=== PATIENT | female | born 1940 | race Caucasian/White ===

== ENCOUNTER 2025-02-04 13:42 | Inpatient (IN) | payer MEDICARE, OTHER, SELFPAY ==
[2025-02-04] VITALS (45 sets, daily range): BP systolic 100–160; BP diastolic 56–98; PULSE 76–106; RESP 12–88; TEMP 36.4–36.8; O2SAT 88–97; BMI 32.5
--- NOTE | 2025-02-04 13:58 | EDNOTE_ITS ---
Altered Mental Status RME/HPI General Chief Complaint: Altered Mental Status Stated Complaint: ALTERED / CONFUSED Time Seen by Provider: 02/04/25 14:06 Arrival date/time: 02/04/25 13:42 Limitations: no limitations RME / HPI RME / HPI narrative: 84 year old female with history of hypertension and hyperlipidemia presented to the ED BIBA for evaluation of acute altered mental status and confusion beginning 13:00 hours today. Per medics, on scene reported the patient was driving, from [place], when she suddenly became confused and called 911. Per medics, reported no history of similar confusion, CVA, or TIA. While in the ED no further history is obtainable from the patient due to mental status. Blood sugar in ED is 133. Related Data Previous Rx's ?Medication ?Instructions ?Recorded aspirin 81 mg capsule 81 mg PO QDAY 21 days #21 ca ps 02/06/25 atorvastatin 80 mg tablet 80 mg PO QDAY #30 tabs 02/06 clopidogrel 75 mg tablet 75 mg PO QDAY #21 tabs 02/06 Allergies Allergy/AdvReac Type Severity Reaction Status Date / Time No Known Allergies Allergy Verified 02/04/25 14:17 Review of Systems Review of Systems ROS Unobtainable: unobtainable due to mental status Past Medical History Past Medical History CARDIAC: Positive Cardiac Disorders, Hypercholesterolemia and Hypertension ED Exam General Limitations: Present no limitations General appearance: Present other (Patient is AOx0, on initial examination the patient is not able to follow simple commands, hard of hearing. However after 5 minutes the patient was able to follow simple commands. ) Head Head exam: Present atraumatic Eye Eye exam: Present normal appearance, PERRL and EOMI ENT ENT exam: Present normal exam, normal oropharynx and mucous membranes moist Neck Neck exam: Present normal inspection, full ROM and trachea midline Chest Chest inspection: Present normal inspection and symmetric chest wall rise Respiratory Respiratory exam: Present normal lung sounds bilaterally Cardiovascular Cardiovascular exam: Present regular rate, normal rhythm and normal heart sounds Abdominal Exam Abdominal exam: Present soft, normal bowel sounds and other (obese, nontender ) Extremities Exam Extremities exam: Present normal inspection and full ROM Back Exam Back exam: Present normal inspection and full ROM Neurological Exam Neurological exam: Present other (Patient is AOx0, on initial examination the patient is not able to follow simple commands, hard of hearing. However after 5 minutes the patient was able to follow simple commands. Patient has word findings difficulties, expressive and receptive aphasia, not able to test gait. ) Skin Skin exam: Present warm, dry, intact and normal color Course Course Course Narrative: 1351: I was called to the room by RN for possible stroke assessment. 1353: After examination and history provided by medics, stroke alert was activated. Patients is quite agitated, attempted getting out of bed, and upper extremities were placed in soft restraints. 1420: I spoke with teleneurologist as noted below. 1424: Patient sent to CT 1438: Patient has returned from CT, discussed head CT with teleneurologist and report there is no ICH, will continue with TNK. 1444: I spoke with government professor Dr. Campo as noted in the MDM. Quality Measures Suspected type of Stroke: Acute Ischemic Last known well (date): 02/04/25 Last known well (time): 13:00 Tenecteplase given: within 60 min of arrival stroke Orders Category Date Time Status Bedside Blood Glucose NOW Care 02/04/25 14:07 Completed COVID-19 Screening Questionnaire NOW Care 02/04/25 14:40 Completed Residential Recycle Driver NOW Care 02/04/25 14:07 Completed Continuous Pulse Oximetry NOW Care 02/04/25 14:07 Completed Decision to Admit X1 Care 02/04/25 14:39 Completed EKG (ED ONLY) *Do not use* NOW Care 02/04/25 14:07 Completed In and Out Catheter NEEDED Care 02/04/25 14:07 Completed Insert IV NOW Care 02/04/25 14:07 Completed NIH Stroke Scale QSHIFT Care 02/05/25 23:00 Completed NIH Stroke Scale now Care 02/04/25 14:07 Completed NPO NOW Care 02/04/25 14:07 Completed Neuro Check Q15MIN Care 02/04/25 14:07 Completed Neuro Check Q30M Care 02/04/25 14:50 Completed Nurse Swallow Screen x1 Care 02/04/25 14:07 Completed Vital Signs Q15M Care 02/04/25 14:50 Completed Consult to Neurology / Tele-Neurology Routine Cons 02/04/25 14:[address] angio stroke protocol Stat Exams 02/04/25 14:[address] stroke protocol Stat Exams 02/04/25 14:07 Completed EKG (ED Only) Stat Exams 02/04/25 14:07 Draft Alcohol, Blood Medical Stat Lab 02/04/25 13:58 Completed Arterial Blood Gas Stat Lab 02/04/25 15:03 Completed B-Type Natriuretic Peptide Stat Lab 02/04/25 13:50 Completed CBC Stat Lab 02/04/25 13:50 Completed Comprehensive Metabolic Panel Stat Lab 02/04/25 13:58 Completed Drug Screen,Urine Stat Lab 02/04/25 13:30 Completed Magnesium Stat Lab 02/04/25 13:58 Completed Partial Thromboplastin Time Stat Lab 02/04/25 13:50 Completed Prothrombin Time with INR Stat Lab 02/04/25 13:50 Completed Troponin I Stat Lab 02/04/25 13:58 Completed Urinalysis Stat Lab 02/04/25 13:30 Completed Urine Culture Stat Lab 02/04/25 13:30 Completed Haloperidol Lactate [Haldol Inj] Med 02/04/25 14:14 Discontinued 2 mg IM X1 ONE LORazepam [Ativan Inj] Med 02/04/25 14:13 Discontinued 1 mg IVP X1 ONE Labetalol IV [Trandate IV] Med 02/04/25 14:39 Discontinued 100 mg .ROUTE .STK-MED ONE Ondansetron Inj [Zofran Inj] Med 02/04/25 14:06 Discontinued 4 mg IV Q4HR PRN Sodium Chloride 0.9% 1000 ml [Ns] 1,000 ml Med 02/04/25 14:15 Discontinued IV Q10H Tenecteplase Inj [TNKase Inj] Med 02/04/25 14:34 Discontinued 21.375 mg IV X1 ONE Tenecteplase Inj [TNKase Inj] Med 02/04/25 14:39 Discontinued 50 mg .ROUTE .STK-MED ONE Oxygen Delivery NOW RT 02/04/25 14:07 Completed Vital Signs Vital signs: Vital Signs Pulse Rate 95 02/04/25 14:07 Altered Mental Status MDM Narrative MDM Narrative:: Merly Carlos am scribing for and in the presence of Dr. Hussein. Patient data External records reviewed:: EMS form Clinical information provided by:: EMS Social determinants that could affect healthcare access:: none Patient has the following chronic illnesses:: HTN, HLD How is presenting disease/condition affected by chronic disease/condition?: exacerbated by Evaluation data The following diagnostics were reviewed and interpreted by me:: lab results, radiology exam(s) and EKG tracing(s) (sinus rhythm with occasional PVC's, rate 88, inferior AL age indeterminate) Lab and/or radiology exams considered but not ordered:: None Interpretation Summary: Ordering Physician: Mj Hussein MD Date of Service: 02/04/25 Procedure(s): CT stroke protocol Accession Number(s): [id number] cc: Mj Hussein MD; Santosh Quinonez MD~ Examination: CT brain head without contrast. 2-D sagittal coronal reconstructions Date and time of exam:The second 2024 1428 hours INDICATIONS: Stroke alert, onset focal neurologic deficit altered mental status today CTDI: vol (mGy):8.2 DLP: (mGycm):955 Technique: Multiple CT axial sections of the brain have been obtained, 5 mm slice thickness. Contrast has not been administered. 2-D sagittal, coronal reconstructions have been obtained Low dose protocols were performed. One or more of the following dose reduction techniques were used; automated exposure control, adjustment of the mA and/or KV according to patient size, use of iterative reconstruction technique. Findings: No significant ventricular enlargement. Intra-axial or extra-axial hemorrhage density is not seen. No mass effect or midline shift Basal cisterns are not remarkable. Fourth ventricle is midline. Cranial vault intact. Impression: Negative for acute hemorrhage, mass effect or midline shift Dictated By: Santosh Quinonez MD Signed By: <Electronically signed by Santosh Quinonez MD in [place]> 02/04/25 1434 Medications / Prescriptions Medications or Prescriptions considered but not ordered:: None Medication administrations:: Medication Administration History Discontinued Medications Acetaminophen (Acetaminophen 325 Mg Tablet) 650 mg PO Q6HR PRN PRN Reason: PAIN OR FEVER > 101 Stop: 03/08/25 12:12 Last Admin: 02/06/25 12:41 Dose: 650 mg Documented By: TESSY Aspirin (Aspirin Ec 81 Mg Tabec) 81 mg PO QDAY ZACK Stop: 03/08/25 08:59 Last Admin: 02/06/25 08:40 Dose: 81 mg Documented By: TESSY Atorvastatin Calcium (Atorvastatin Calcium 20 Mg Tablet) 80 mg PO HS ZACK Stop: 03/06/25 20:59 Last Admin: 02/05/25 20:33 Dose: 80 mg Documented By: Admin: 02/04/25 22:37 Dose: Not Given Documented By: AALIYAH Non-Admin Reason: NPO Clopidogrel Bisulfate (Clopidogrel Bisulfate 75 Mg Tablet) 75 mg PO QDAY ZACK Stop: 03/08/25 08:59 Last Admin: 02/06/25 08:41 Dose: 75 mg Documented By: TESSY Haloperidol Lactate (Haloperidol Lact Inj 5 Mg/Ml Vial) 2 mg IM X1 ONE Stop: 02/04/25 14:15 Last Admin: 02/04/25 14:21 Dose: 2 mg Documented By: ANGELA Haloperidol Lactate (Haloperidol Lact Inj 5 Mg/Ml Vial) 2 mg IM X1 ONE Stop: 02/05/25 20:17 Last Admin: 02/05/25 21:00 Dose: 2 mg Documented By: AALIYAH Sodium Chloride (Ns) 1,000 mls @ 100 mls/hr IV Q10H ZACK Stop: 03/06/25 14:14 Last Infusion: 02/06/25 07:15 Dose: Infused Documented By: Admin: 02/05/25 21:53 Dose: Not Given Documented By: AALIYAH Non-Admin Reason: Discontinued Admin: 02/05/25 13:51 Dose: Not Given Documented By: MICHAEL Non-Admin Reason: Per Admin: 02/05/25 02:01 Dose: 100 mls/hr Documented By: Infusion: 02/05/25 01:39 Dose: Infused Documented By: Admin: 02/04/25 15:39 Dose: 100 mls/hr Documented By: ANGELA Labetalol HCl (Labetalol Inj 5 Mg/Ml Vial 20 Ml) Confirm Administered Dose 100 mg .ROUTE .STK-MED ONE Stop: 02/04/25 14:40 Last Admin: 02/04/25 15:34 Dose: Not Given Documented By: ANGELA Non-Admin Reason: Duplicate Medication on eMAR Labetalol HCl (Labetalol Inj 5 Mg/Ml Vial 20 Ml) 10 mg IVP Q2HR PRN PRN Reason: BP>180/105, hold if HR<60 Stop: 03/08/25 00:00 Labetalol HCl (Labetalol Inj 5 Mg/Ml Vial 20 Ml) 2.5 mg IVP Q2HR PRN PRN Reason: BP>180/105, hold if HR<60 Stop: 03/08/25 00:00 Lorazepam (Lorazepam 2 Mg/Ml Vial) 1 mg IVP X1 ONE Stop: 02/04/25 14:14 Last Admin: 02/04/25 14:22 Dose: 1 mg Documented By: DB Lorazepam (Lorazepam 2 Mg/Ml Vial) 2 mg IVP X1 ONE Stop: 02/04/25 19:32 Last Admin: 02/04/25 19:34 Dose: 2 mg Documented By: AD Midazolam HCl (Midazolam Inj 1 Mg/Ml Vial 2 Ml) 2 mg IV X1 ONE Stop: 02/05/25 11:07 Last Admin: 02/05/25 20:31 Dose: Not Given Documented By: AD Non-Admin Reason: Discontinued Midazolam HCl (Midazolam Inj 1 Mg/Ml Vial 2 Ml) 2 mg IV X1 ONE Stop: 02/05/25 20:19 Last Admin: 02/05/25 20:31 Dose: 2 mg Documented By: AD Ondansetron HCl (Ondansetron Inj 2 Mg/Ml Inj 2 Ml) 4 mg IV Q4HR PRN PRN Reason: NAUSEA OR VOMITING Stop: 03/06/25 14:05 Tenecteplase (Tenecteplase Inj 50 Mg Vial) 21.375 mg IV X1 ONE Stop: 02/04/25 14:35 Last Admin: 02/04/25 14:44 Dose: 21.375 mg Documented By: ANGELA Co-signed By: GAETANO Tenecteplase (Tenecteplase Inj 50 Mg Vial) Confirm Administered Dose 50 mg .ROUTE .STK-MED ONE Stop: 02/04/25 14:40 Last Admin: 02/04/25 15:34 Dose: Not Given Documented By: ANGELA Non-Admin Reason: Duplicate Medication on eMAR See above Consultations Consultation(s) initiated? (list below): Yes Consultation #1 (Physician, Specialty, Details): I spoke with teleneurologist Dr. Uriah Glynn. States at this time and after evaluation patient is a candidate for TNK. States he has spoke with patients son who has provided consent. Patient's head CT pending. Time: 14:20 Consultation #2 (Physician, Specialty, Details): I spoke with government professor Dr. Campo. Discussed patients PMHx, HPI, ED course, exam findings, labs, and radiology results. Patient accepted for admission. Time: 14:44 Diagnosis Differential diagnosis altered mental status: altered mental status, dementia, hypoglycemia, hyponatremia, subarachnoid hemorrhage, sepsis and other (CVA, TIA, ICH ) Most likely diagnosis given after review of the tests above:: Acute CVA, most likely ischemic Admission Indicated Admission indicated?: indicated Admission Request Was there a request for admission?: Yes Admission Attestation Admission request attestation: Discussed case with [] from Hospitalist service regarding admission. Discussed patients ED course, exam findings, labs, and radiology results. The Hospitalist [agrees,declines] to accept the patient for admission. Disposition Plan Disposition Plan: Admit Critical Care Time Critical Care Time Critical Care Time: Yes Total Critical Care Time (min.): 35 Attestation: The high probability of sudden, clinically significant deterioration in the patient's condition required the highest level of my preparedness to intervene urgently. The services I provided to this patient were to treat and/or prevent clinically significant deterioration. Services included the following: chart data review, reviewing nursing notes and/or old charts, documentation time, consultant [employer]. vice president [employer] (ex ) collaboration regarding findings and treatment options, medication orders and management, direct patient care, vital sign assessments and ordering, interpreting and reviewing diagnostic studies and lab tests. Aggregate critical care time includes only time during which I was engaged in work directly related to the patient's care, as described above, whether at bedside or elsewhere in the Emergency Department. It did not include time spent performing other reported procedures or the services of residents, students, nurses or physician assistants. Discharge Plan Plan Patient Disposition: Admit Acute Care w/in Hospital Disposition Comment: ICU, Dr. Campo Problem List Clinical Impression: Acute cerebrovascular accident (CVA)
--- NOTE | 2025-02-04 14:04 | PC.NURSE ---
PT'S [facility]EC[facility] CALLED. STATES WAITING FOR SON TO COME FROM [place] TO PICK HIM UP. PHONE [phone]
--- NOTE | 2025-02-04 14:07 | XR_ITS ---
Examination: CTA carotids with intravenous contrast CTA brain, head with intravenous contrast. 2-D sagittal, coronal reconstructions. 3-D reconstructions. Exam date and time: February 04, 2025 1626 hours INDICATIONS: Stroke alert, onset focal neurologic deficit today altered mental status CTDI: vol (mGy) 24.5 DLP: (mGycm) 379 Technique: Multiple CTA axial brain, head carotid images post intravenous contrast injection 75 cc, [id number]. 2-D sagittal, coronal reconstructions. 3-D reconstructions, 3-D post processing including vascular maximum intensity projection images. Low dose protocols were performed. One or more of the following dose reduction techniques were used; automated exposure control, adjustment of the mA and/or KV according to patient size, use of iterative reconstruction technique. Findings: No significant common carotid carotid bifurcation or internal carotid artery stenoses Dominant left vertebral artery with no critical neck stenoses No cerebral large vessel arterial occlusions thrombus dissection or cerebral aneurysm 50% stenosis left posterior cerebral artery junction P1 P2 segments IMPRESSION: No significant neck arterial stenoses No cerebral large vessel arterial occlusions or thrombus
--- NOTE | 2025-02-04 14:07 | XR_ITS ---
Examination: CT brain head without contrast. 2-D sagittal coronal reconstructions Date and time of exam:The second 2024 1428 hours INDICATIONS: Stroke alert, onset focal neurologic deficit altered mental status today CTDI: vol (mGy):8.2 DLP: (mGycm):955 Technique: Multiple CT axial sections of the brain have been obtained, 5 mm slice thickness. Contrast has not been administered. 2-D sagittal, coronal reconstructions have been obtained Low dose protocols were performed. One or more of the following dose reduction techniques were used; automated exposure control, adjustment of the mA and/or KV according to patient size, use of iterative reconstruction technique. Findings: No significant ventricular enlargement. Intra-axial or extra-axial hemorrhage density is not seen. No mass effect or midline shift Basal cisterns are not remarkable. Fourth ventricle is midline. Cranial vault intact. Impression: Negative for acute hemorrhage, mass effect or midline shift
--- NOTE | 2025-02-04 14:07 | EKG_ITS ---
[facility] Test Date: 2025-02-04 Pat Name: KATELIN HAWK Department: Room: - Gender: Female Master Baker: : 1940 Requested By: Mj Jamison Order Number: [id number] Reading MD: Mj Jamison Measurements Intervals [place] Rate: 88 P: 50 NM: 184 QRS: -9 QRSD: 94 T: 15 QT: 375 QTc: 454 Interpretive Statements SINUS RHYTHM WITH OCCASIONAL VENTRICULAR PREMATURE COMPLEXES LOW QRS VOLTAGE IN PRECORDIAL LEADS [QRS DEFLECTION < 1.0 mV IN CHEST LEADS] INFERIOR MYOCARDIAL INFARCTION , PROBABLY OLD [40+ ms Q WAVE AND/OR ST/T ABNORMALITY IN II/aVF] No previous ECG available for comparison /[id number]/S0/[id number]
--- NOTE | 2025-02-04 14:15 | PC.NURSE ---
teleneurologist Dr Kruse on the phone with son Cody [phone], concent obtained
[2025-02-04] MEDS: HALOPERIDOL LACT INJ 5 MG/ML VIAL 2 MG IM (14:21)
[2025-02-04] MEDS: LORazepam 2 MG/ML VIAL 1 MG IVP (14:22)
[2025-02-04 14:25] LABS: Basophils # (Auto) 0.1 Thou/mm3 (0.0-0.2); Basophils % (Auto) 1 % (0-2.5); Eosinophils # (Auto) 0.3 Thou/mm3 (0.0-0.5); Eosinophils % (Auto) 2 % (0-10); Hematocrit 40.2 % (36.0-46.0); Hemoglobin 13.3 g/dL (12.0-16.0); Immature Granulocytes % (Auto) 0 % (0-0); Immature Granulocytes Auto 0.03 Thou/mm3 (0.00-0.00); Lymphocytes # (Auto) 3.7 Thou/mm3 (1.0-4.8); Lymphocytes % (Auto) 31 % (10-50); Mean Corpuscular HGB Conc 33.1 g/dl (31.0-37.0); Mean Corpuscular Hemoglobin 28.2 pg (25.0-35.0); Mean Corpuscular Volume 85 fL (80-100); Monocytes # (Auto) 0.9 Thou/mm3 (0.0-0.8); Monocytes % (Auto) 7 % (0-12); Neutrophils # (Auto) 7.1 Thou/mm3 (1.8-7.7); Neutrophils % (Auto) 59 % (37-80); Nucleated Red Blood Cell % 0 /100 WBC (0); Platelet Count 325 Thou/mm3 (140-440); RDW Standard Deviation 48.5 fL (36.4-46.3); Red Blood Count 4.72 Miln/mm3 (4.00-5.20); White Blood Count 12.2 Thou/mm3 (3.6-11.0)
[2025-02-04 14:34] LABS: B-Type Natriuretic Peptide 48 pg/mL (0-100)
[2025-02-04] MEDS: TENECTEPLASE INJ 50 MG VIAL 21.375 MG IV (14:44)
[2025-02-04 14:46] LABS: Partial Thromboplastin Time 24.1 Seconds (22.0-36.0); Prothrombin Time 10.9 Seconds (9.0-12.2)
[2025-02-04 15:00] LABS: Alanine Aminotransferase 19 U/L (10-49); Albumin, Serum 4.7 gm/dL (3.4-4.8); Albumin/Globulin Ratio 2.2 (1.2-2.2); Alcohol, Blood Medical < 3.0 mg/dL (0-10.0); Alkaline Phosphatase 126 U/L (46-116); Anion Gap 14 (7-16); Aspartate Amino Transferase 23 U/L (0-34); BUN/Creatinine Ratio 18 Ratio (12-20); Bilirubin,Total 0.5 mg/dL (0.3-1.2); Blood Urea Nitrogen 14 mg/dL (9-23); Calcium 9.3 mg/dL (8.3-10.6); Calcium (Corrected) 9.3 mg/dL (8.5-10.1); Carbon Dioxide 19.2 mMol/L (20.0-31.0); Chloride 111 mMol/L (98-107); Creatinine (Component) 0.8 mg/dL (0.6-1.3); Estimated Creatinine Clearance 55.5 mL/min (>60); Globulin 2.1 gm/dL (2.3-3.5); Glucose 135 mg/dL (74-106); Magnesium 2.1 mg/dL (1.6-2.6); Osmolality,Calculated 289 (275-295); Potassium 3.6 mMol/L (3.4-5.1); Sodium 144 mMol/L (136-145); Total Protein 6.8 gm/dL (5.7-8.2); Troponin I < 0.002 ng/mL (0.0-0.045); eGFR > 60 See Note
--- NOTE | 2025-02-04 15:05 | ESCONSULT_ITS ---
Tele Neuro Consultation Consultation Date 02/04/25 Most Recent Vital Signs Last Vital Signs Pulse 95 02/04/25 14:07 Laboratory-Coagulation Panel PT 10.9 Seconds (9.0-12.2) 02/04/25 13:50 INR 1.0 (0.9-1.3) 02/04/25 13:50 APTT 24.1 Seconds (22.0-36.0) 02/04/25 13:50 Consultation Narrative [facility] Tele[facility]rology Consult [facility] Patient Name:???Malathi Cedeño Date of :???1940 Identification Number:??? Date of Service:???02/04/2025 13:57:20 Diagnosis:?I63.30 - Cerebrovascular accident (CVA) due to thrombosis of cerebral artery (HCCC) Impression: ?84-year-old female with history of hypertension, hyperlipidemia who apparently was noted to have acute change in mental status with suspected ap hasia. Patient was reportedly driving with her when she turned on her [employer] and it was not raining. came concerned and had her sinker puller and noted that she was not talking normally or answering questions. Patient was brought in by EMS. On arrival, patient seems to have significant expressive greater than receptive aphasia. ?On examination, patient is awake, unable to answer orientation questions due to aphasia although did tell me her first name, follows some simple commands but not consistently. She has some bilateral leg drift but did not fully cooperate with motor testing but no obvious asymmetries. Maybe some mild superimposed dysarthria as well. NIHSS = 9. Patient was severely agitated initially and required sedatives before being able to complete CT head with significant delay. CT head revealed no acute findings. We will proceed with stat CTA of head and neck, and involve VAMSHI if there is LVO. ?Suspect acute CVA. Patient's son, Cody was contacted on the phone to obtain additional information and consent for thrombolytic treatment. Patient had no exclusionary factors. IV tenecteplase, was given after consent obtained and CT resulted. Admit for cerebrovascular workup and management postthrombolytic treatment. Our recommendations are outlined below. Recommendations: IV Tenecteplase recommended. I confirmed the following. (Patient name, , MRN, Blood Pressure, dose of Thrombolytic and waste, weight completed by stretcher/scale not stated weight, have ED staff inform ED MD of thrombolytic decision) Thrombolytic bolus given Without Complication. IV Tenecteplase Total Dose ? 21.4 mg Routine post Thrombolytic monitoring including neuro checks and blood pressure control during/after treatment Monitor blood pressure Check blood pressure and neuro assessment every 15 min for 2 h, then every 30 min for 6 h, and finally every hour for 16 h. Manage Blood Pressure per post Thrombolytic protocol. ? Follow designated hospital protocol for admission and post thrombolytic care ? CT brain 24 hours post Thrombolytic ? NPO until swallowing screen performed and passed ? No antiplatelet agents or anticoagulants (including heparin for DVT prophylaxis) in first 24 hours ? No Fajardo catheter, nasogastric tube, arterial catheter or central venous catheter for 24 hr, unless absolutely necessary ? Telemetry ? Bedside swallow evaluation ? HOB less than 30 degrees ? Euglycemia ? Avoid hyperthermia, PRN acetaminophen ? DVT prophylaxis ? Inpatient Neurology Consultation ? Stroke evaluation as per inpatient neurology recommendations Discussed with ED physician Metrics: Last Known Well: 02/04/2025 12:30:00 Dispatch Time: 02/04/2025 13:57:20 Arrival Time: 02/04/2025 13:42:00 Initial Response Time: 02/04/2025 13:59:04Symptoms: Aphasia . Initial patient interaction: 02/04/2025 14:01:04 NIHSS Assessment Completed: 02/04/2025 14:07:05Patient is a candidate for Thrombolytic. Thrombolytic Medical Decision: 02/04/2025 14:36:34 Needle Time: 02/04/2025 14:44:36Weight Noted by Staff: 85.5 kg I personally Reviewed the CT Head and it Showed Extended thrombolytic management related to: ?? Awaiting on history by family on potential contraindications Thrombolytic Contraindications: Last Known Well > 4.5 hours:?Unknown at the time of medical decision making CT Head showing hemorrhage:?Unknown at the time of medical decision making Ischemic stroke within 3 months:?Unknown at the time of medical decision making Severe head trauma within 3 months:?Unknown at the time of medical decision making Intracranial/intraspinal surgery within 3 months:?Unknown at the time of medical decision making History of intracranial hemorrhage:?Unknown at the time of medical decision making Symptoms and signs consistent with an SAH:?Unknown at the time of medical decision making GI malignancy or GI bleed within 21 days:?Unknown at the time of medical decision making Coagulopathy: Platelets <100 000 /mm3, INR >1.7, aPTT>40 s, or PT >15 s:?Unknown at the time of medical decision making Treatment dose of LMWH within the previous 24 hrs:?Unknown at the time of medical decision making Use of NOACs in past 48 hours:?Unknown at the time of medical decision making Glycoprotein IIb/IIIa receptor inhibitors use:?Unknown at the time of medical decision making Symptoms consistent with infective endocarditis:?Unknown at the time of medical decision making Suspected aortic arch dissection:?Unknown at the time of medical decision making Intra-axial intracranial neoplasm:?Unknown at the time of medical decision making Thrombolytic Decision and Management Plan: Management with thrombolytic treatment was explained to the Family as was risks and benefits and alternatives to the treatment. Patient agrees with the decision to proceed with thrombolytic treatment. . All questions were answered and the Family expressed understanding of the treatment plan. History of Present Illness:Patient is a 84 year old Female. Patient was brought by EMS for symptoms of Aphasia . 84-year-old female with history of hypertension, hyperlipidemia who apparently was noted to have acute change in mental status with suspected aphasia. Patient was reportedly driving with her when she turned on her [employer] w[employer]' s and it was not raining. came concerned and had her sinker puller and noted that she was not talking normally or answering questions. Patient was brought in by EMS. On arrival, patient seems to have significant expressive greater than receptive aphasia. ? Past Medical History: ?Hypertension ?Hyperlipidemia Other PMH:? TIA possible Medications: No Anticoagulant use? No Antiplatelet use Reviewed EMR for current medications Other Medications Pertinent To Assessment Include: BP , atovastatin Allergies:? Reviewed,NKDA Social History: Smoking: No Alcohol Use: No Drug Use: No Family History: There is no family history of premature cerebrovascular disease pertinent to this consultation ROS : 14 Points Review of Systems was performed and was negative except mentioned in HPI. Past Surgical History: There Is No Surgical History Contributory To Today?s Visit There Is Surgical History of:? Cholecystectomy ? Examination: BP(154/97),?Pulse(105),?Blood Glucose(133) 1A: Level of Consciousness - Alert; keenly responsive?+ 0 1B: Ask Month and Age - Aphasic?+ 2 1C: Blink Eyes & Squeeze Hands - Performs Both Tasks?+ 0 2: Test Horizontal Extraocular Movements - Normal?+ 0 3: Test Visual Spencer - No Visual Loss?+ 0 4: Test Facial Palsy (Use Grimace if Obtunded) - Normal symmetry?+ 0 5A: Test Left Arm Motor Drift - No Drift for 10 Seconds?+ 0 5B: Test Right Arm Motor Drift - No Drift for 10 Seconds?+ 0 6A: Test Left Leg Motor Drift - Some Effort Against Plains?+ 2 6B: Test Right Leg Motor Drift - Some Effort Against Plains?+ 2 7: Test Limb Ataxia (FNF/Heel-Elias) - No Ataxia?+ 0 8: Test Sensation - Normal; No sensory loss?+ 0 9: Test Language/Aphasia - Severe Aphasia: Fragmentary Expression, Inference Needed, Cannot Identify Materials?+ 2 10: Test Dysarthria - Mild-Moderate Dysarthria: Slurring but can be understood?+ 1 11: Test Extinction/Inattention - No abnormality?+ 0 NIHSS Score:?9 Pre-Morbid Modified Jocelyn Scale:0 Points = No symptoms at all Spoke with :?Dr Hussein This consult was conducted in real time using interactive audio and video technology. Patient was informed of the technology being used for this visit and agreed to proceed. Patient located in hospital and provider located at home/office setting. Patient is being evaluated for possible acute neurologic impairment and high probability of imminent or life-threatening deterioration. I spent total of 69 minutes providing care to this patient, including time for face to face visit via telemedicine, review of medical records, imaging studies and discussion of findings with providers, the patient and/or family. Dr Uriah Glynn [facility] For Inpatient follow-up with [facility] physician please call [facility] at . As we are not an outpatient service for any post hospital discharge needs please contact the hospital for assistance. If you have any questions for the [facility] physicians or need to reconsult for clinical or diagnostic changes please contact us via [facility] at .
[2025-02-04 15:08] LABS: Base Excess -1 (-3-3); HCO3 22 mEq/L (20-26); Inspired O2, VO2 Liters 2 L/min; Inspired Oxygen, FIO2 21 %; O2 Saturation 88 % (91-98); PCO2 31 mmHg (32.0-48.0); pH, Arterial 7.47 (7.35-7.45)
[2025-02-04 15:09] LABS: Allen Test Performed/OK; Puncture Site Left Radial
[2025-02-04 15:15] LABS: PO2 51 mmHg (83-108)
--- NOTE | 2025-02-04 15:28 | PD.RESHP ---
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 Patient's and son were at bedside during the time of assessment and provided most of the history given that patient was aphasic. Patient's stated that in October around [place] time she had a similar episode where she was confused, but this episode did not last long and it was self resolved. He did not mention any hospital stay or visit during this time, but he did mention that supposedly it was a TIA. Patient stated that today's episode started when they were finishing packing up everything to head home back from [place] when she was on the car asking him how to turn on the windshield blades as it was raining, but it was not raining and all. Patient's mentioned that he noticed that she was more confused therefore he drove until he had good cell phone campus receptionist and was able to call 911 to have patient brought into the ER. Prior to this patient's stated that she was in her normal mental state. As per patient's she does not take any medications other than atorvastatin 10 mg as well as some blood pressure medications. It is unknown if patient was on any dual antiplatelet therapy after her similar episode in October. During assessment patient was able to follow commands, but it was noted that she did have some expressive aphasia and was mildly confused and was only oriented to her first name. She denies any chest pain, abdominal pain, nausea, diarrhea, or dysuria. In the ER patient was agitated, confused, combative, and is still aphasic therefore she was given Ativan and haloperidol as well as restraints were placed. Head CT was done while the patient was in the ER and did not reveal any acute hemorrhage, mass effect, or midline shift therefore ER physician spoke with teleneurology specialist and was given tenecteplase. Patient was admitted to the ICU for post tenecteplase administration monitoring. ED course: Initially came in hypertensive, hypoxic, and afebrile. Initial labs were relevant for mild leukocytosis (12.2), mild respiratory alkalosis and hypoxia (pH 7.47, pO2 51, pCO2 31), high anion gap metabolic acidosis (AG 14 and bicarb 19.2), and drug screen positive for marijuana. Initial imaging included head CT which did not show any acute hemorrhage, mass effect, or midline shift. EKG showed sinus rhythm. PMH: As above Social Hx: As per patient's never did any drugs, smokes, or alcohol Surgical Hx as per only had cholecystectomy many years ago Allergies: As per patient's no allergies Review of Systems Review of Systems Narrative Review of Systems: Constitutional: Denies sweats, Denies weight loss/gain, Denies fever, Denies chills. HEENT: Denies hearing loss, Denies ear pain, Denies postnasal drip, Denies double vision, Denies blurry vision. Respiratory: Denies shortness of breath, Denies cough, Denies wheezing. Cardiovascular: Denies chest pain, Denies palpitations, Denies sudden loss of consciousness. GI: Denies blood in stool, Denies constipation, Denies abdominal pain, Denies difficulty swallowing, Denies nausea or vomit. : Denies urinary incontinence, Denies pain while urinating, Denies increased urinary frequency. MSK: Denies joint pain, Denies joint swelling, Denies numbness. Skin: Denies rash, Denies itching, Denies easy bruising. Neuro: Denies headaches, Denies dizziness, Denies seizures, Admits confusion . Past Medical History Past Medical History CARDIAC: Positive Cardiac Disorders, Hypercholesterolemia and Hypertension Exam Vital Signs Temp Pulse Resp BP Pulse Ox O2 Del Method O2 Flow Rate 97.9 F 97 20 151/69 H 92 L Nasal Cannula 2 02/04/25 15:00 02/04/25 15:15 02/04/25 15:15 02/04/25 15:15 02/04/25 15:15 02/04/25 15:15 02/04/25 15:15 Narrative Exam General: Aphasic and confused. Oriented only to first name. Eyes: PERRL, EOMI. Anicteric, vision grossly intact. Ears: No ear pain, no ear discharge, Hearing grossly intact. Nose: No nasal discharge. Mouth/Throat: Dry mucous membranes, no redness, no lesions. Neck: Neck supple, non-tender, no cervical lymphadenopathy. Lungs: Clear CHRIS to auscultation and percussion, No accessory muscle use. Cardio: Normal S1/S2, regular rhythm, no murmurs, no JVD Abdomen: Soft, non-tender, no palpable masses, peristalsis present, no guarding or rebound. Extremities: Symmetrical, no significant deformities, no peripheral edema , non-tender, peripheral pulses presents. Skin: No rashes, no lesions, warm to touch. Neuro: Expressive aphasia appreciated, able to move all extremities, able to follow commands, no loss of sensation, no nasal fold flattening, muscle strength in upper and lower extremities 5 out of 5. Only alert to her first name, but not last name or date or place. Psych: Cooperative, appropriate mood and effect. Results: Labs 02/04/25 13:50 02/04/25 13:58 Labs: Short CBC 02/04/25 Range/Units 13:50 WBC 12.2 H (3.6-11.0) Thou/mm3 Hgb 13.3 (12.0-16.0) g/dL Hct 40.2 (36.0-46.0) % Plt Count 325 (140-440) Thou/mm3 BMP 02/04/25 13:58 Sodium 144 Potassium 3.6 Chloride 111 H Carbon Dioxide 19.2 L BUN 14 Creatinine 0.8 Glucose 135 H Calcium 9.3 Cardiac Enzymes 02/04/25 Range/Units 13:58 Troponin I < 0.002 (0.0-0.045) ng/mL Liver Function 02/04/25 Range/Units 13:58 Total Bilirubin 0.5 (0.3-1.2) mg/dL AST 23 (0-34) U/L ALT 19 (10-49) U/L Alkaline Phosphatase 126 H (46-116) U/L Albumin 4.7 (3.4-4.8) gm/dL ABG Interpretation ABG results: 02/04/25 15:03 ABG pH 7.47 H ABG pCO2 31 L ABG pO2 51 L* ABG HCO3 22 ABG O2 Saturation 88 L ABG Base Excess -1 Quality Measures Quality Measures stroke Suspected type of Stroke: Acute Ischemic Last known well (date): 02/04/25 Last known well (time): 13:00 Tenecteplase given: within 60 min of arrival Rehab services: PT evaluation ordered and Speech Language Pathology eval ordered VTE Prophylaxis: not ordered (received TNK) Antithrombotic by day 2:: contraindicated (describe) (recieved tenecteplase on arrival ) Statin ordered: >75 y/o moderate or high intensity dose Anticoagulation ordered for A-fib or flutter (current or hx): not indicated Advance care planning discussed with:: patient, spouse and child Medications Home Medications and Allergies Allergies Allergy/AdvReac Type Severity Reaction Status Date / Time No Known Allergies Allergy Verified 02/04/25 14:17 Visit Medications Atorvastatin Calcium (Atorvastatin Calcium 20 Mg Tablet) 80 mg PO HS ZACK Stop: 03/06/25 20:59 Sodium Chloride (Ns) 1,000 mls @ 100 mls/hr IV Q10H ZACK Stop: 03/06/25 14:14 Ondansetron HCl (Ondansetron Inj 2 Mg/Ml Inj 2 Ml) 4 mg IV Q4HR PRN PRN Reason: NAUSEA OR VOMITING Stop: 03/06/25 14:05 Discontinued Medications Haloperidol Lactate (Haloperidol Lact Inj 5 Mg/Ml Vial) 2 mg IM X1 ONE Stop: 02/04/25 14:15 Last Admin: 02/04/25 14:21 Dose: 2 mg Lorazepam (Lorazepam 2 Mg/Ml Vial) 1 mg IVP X1 ONE Stop: 02/04/25 14:14 Last Admin: 02/04/25 14:22 Dose: 1 mg Tenecteplase (Tenecteplase Inj 50 Mg Vial) 21.375 mg IV X1 ONE Stop: 02/04/25 14:35 Last Admin: 02/04/25 14:44 Dose: 21.375 mg Assessment & Plan Plan 84-year-old female with past medical history of TIA, hyperlipidemia, hypertension, and valley fever was admitted to the ICU on 02/04/2025 for post tenecteplase administration monitoring and the likelihood of acute CVA. 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 ?No labs until tomorrow at 2pm ? Repeat head CT after 24 hours ? MRI ordered - Echo ordered ?Neurochecks every 1 hour ?Allow permissive hypertension (upto 180/105) ?Head of bed flat until CTA gets back and if she does not have an LVO will keep head of bed elevated at 30 degrees or less - Will start aspirin tomorrow and plavix as well. -NPO until formal speech eval. ?Aspiration precautions -Consult in-hospital neurology, appreciate recommendations -Referred to speech and physical therapy CVS: #Hx of hypertension ?Will allow permissive hypertension for now with blood pressure below 180/105 in the setting of tenecteplase and possible CVA #Hyperlipidemia ? Start atorvastatin if patient passes formal speech evaluation Respiratory: #Acute hypoxic respiratory failure #Respiratory alkalosis ? Patient was saturating in the 93 to 92% and was placed on 2 L of nasal cannula. ? ABG that showed pO2 of 51, pCO2 31, and pH of 7.47 ? Will continue with O2 administration for now and monitor Renal: No active conditions GI: No active conditions Endo: No active conditions Hematology: #Leukocytosis ? WBC 12.2 on admission, likely reactive ? Will continue monitor for now Hospital Maintenance: Diet: NPO DVT ppx: held due to TNK GI ppx: not indicated IV lines: PIV Fajardo: none Code status: Full code Dispo: ICU for monitoring after tenecteplase Case disclosed with Attending Dr. Jahaira Phillips PGY1
[2025-02-04 15:36] LABS: Collection Type, Urine Catheter
[2025-02-04] MEDS: SODIUM CHLORIDE 0.9% 1000 ML 1,000 ML 100 ML IV (15:39)
[2025-02-04 15:46] LABS: Bilirubin,Urine Negative (Negative); Blood,Urine Negative (Negative); Clarity,Urine Clear (Clear/Hazy); Color,Urine Colorless (Lt Yel-Yel); Glucose, Urine Negative (Negative); Ketones,Urine Trace (Negative); Leukocyte Esterase,Urine Negative (Negative); Nitrite,Urine Negative (Negative); PH,Urine 7.5 (5.0-7.0); Protein,Urine Negative (Neg - Trace); RBC,Urine 1 /hpf (0-3); Squamous Epithelial Cell,Urine 1 /hpf (0-5); Urobilinogen,Urine Negative mg/dL (0.0-1.0); WBC,Urine 4 /hpf (0-5)
[2025-02-04 15:57] LABS: Amphetamine/Methamp Scrn,U Negative (Negative); Barbiturate Screen,Urine Negative (Negative); Benzodiazepines Screen,Urine Negative (Negative); Benzoylecgonine Screen, Ur Negative (Negative); Fentanyl Screen,Urine Negative (Negative); Opiate Screen,Urine Negative (Negative); THC Screen,Urine Positive (Negative)
--- NOTE | 2025-02-04 16:20 | PC.NURSE ---
TELENEROLOGIST CALLED AND WASNT TO KNOW WHY CTA NOT DONE. INFORMED THAT NURSE WAS TOLD IT WAS CANCELLED. MD WANTS SCAN DONE AND NURSE INFORMED
--- NOTE | 2025-02-04 16:22 | PC.NURSE ---
PT HERE WITH C/O VAGINAL BLEEDING AND B/P HIGH. HX HTN
[2025-02-04] MEDS: LORazepam 2 MG/ML VIAL IVP (19:34)
--- NOTE | 2025-02-04 20:00 | PC.NURSE ---
MRI called for pt to be transported for MRI. per family, pt is claustrophobic, made aware. 2mg ativan IV ordered. prior to transporting pt, ativan was given. in MRI, pt moving and not following directions to stay still. made aware and pt was brought back to ICU and will attempt again in AM
[2025-02-05] VITALS (55 sets, daily range): BP systolic 110–168; BP diastolic 58–126; PULSE 60–122; RESP 13–93; TEMP 36.3–37.1; O2SAT 88–97; BMI 31.4; BMI 13.0
[2025-02-05] MEDS: SODIUM CHLORIDE 0.9% 1000 ML 1,000 ML 100 ML IV (02:01)
--- NOTE | 2025-02-05 07:07 | PC.LAC ---
Human Resources Technician: Late entry for 02/04/25 @ [id number]: Dr Hussein informed that no CTA was done due to time constraints around the [facility]. CT Angio was held per direction of the on-screen neurologist.
--- NOTE | 2025-02-05 13:45 | PC.SS ---
KILN PULLER conducted bedside contact with the patient conduct initial assessment and to discuss discharge planning.? Patient confirmed demographic information.? Patient resides at home with spouse, Cody Cedeño .? 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 Patient resides in [place], [place].? Patient returning home from [place] when increased confusion prompted patient?s spouse to bring patient to ED.? Patient does not utilize any form of DME to assist with ambulation.? Patient does not utilize home oxygen.? Patient utilizes a CPAP for night time use.? Patient describes the ability to complete ADL?s independently.? Patient identified spouse, Cody Cedeño ; as medical surrogate decision maker.? Patient?s PCP is Lida Driver.? Patient?s pastry decorator is Lida Espinoza.? Patient does not participate with dialysis.? Patient utilizes [facility] ([facility] for medication services.? Plan is for the patient to return home at the time of discharge.? Family will provide transportation on behalf of the patient. No discharge needs identified by the patient.? No further intervention required at this time, social media marketing manager will be available to address any further concerns.? Next of Kin: Cody Cedeño D/C Plan: Home
[2025-02-05 13:46] LABS: Basophils # (Auto) 0.1 Thou/mm3 (0.0-0.2); Basophils % (Auto) 1 % (0-2.5); Eosinophils # (Auto) 0.1 Thou/mm3 (0.0-0.5); Eosinophils % (Auto) 1 % (0-10); Hematocrit 40.1 % (36.0-46.0); Hemoglobin 13.2 g/dL (12.0-16.0); Immature Granulocytes % (Auto) 0 % (0-0); Immature Granulocytes Auto 0.03 Thou/mm3 (0.00-0.00); Lymphocytes # (Auto) 1.7 Thou/mm3 (1.0-4.8); Lymphocytes % (Auto) 21 % (10-50); Mean Corpuscular HGB Conc 32.9 g/dl (31.0-37.0); Mean Corpuscular Hemoglobin 28.1 pg (25.0-35.0); Mean Corpuscular Volume 86 fL (80-100); Monocytes # (Auto) 0.6 Thou/mm3 (0.0-0.8); Monocytes % (Auto) 7 % (0-12); Neutrophils # (Auto) 5.8 Thou/mm3 (1.8-7.7); Neutrophils % (Auto) 70 % (37-80); Nucleated Red Blood Cell % 0 /100 WBC (0); Platelet Count 313 Thou/mm3 (140-440); RDW Standard Deviation 50.1 fL (36.4-46.3); Red Blood Count 4.69 Miln/mm3 (4.00-5.20); White Blood Count 8.3 Thou/mm3 (3.6-11.0)
[2025-02-05 14:02] LABS: Glucose Estimated Average 120 mg/dL (80-131); Hemoglobin A1C 5.8 % Hgb (4.8-6.0)
[2025-02-05 14:04] LABS: Alanine Aminotransferase 16 U/L (10-49); Albumin, Serum 4.3 gm/dL (3.4-4.8); Albumin/Globulin Ratio 1.9 (1.2-2.2); Alkaline Phosphatase 114 U/L (46-116); Anion Gap 11 (7-16); Aspartate Amino Transferase 24 U/L (0-34); BUN/Creatinine Ratio 13 Ratio (12-20); Bilirubin,Total 0.6 mg/dL (0.3-1.2); Blood Urea Nitrogen 9 mg/dL (9-23); Calcium 8.7 mg/dL (8.3-10.6); Calcium (Corrected) 8.7 mg/dL (8.5-10.1); Carbon Dioxide 24.5 mMol/L (20.0-31.0); Cardiac Risk Estimate 2.8 RATIO (3.7-5.6); Chloride 108 mMol/L (98-107); Cholesterol 147 mg/dL (132-200); Creatinine (Component) 0.7 mg/dL (0.6-1.3); Estimated Creatinine Clearance 62.5 mL/min (>60); Globulin 2.3 gm/dL (2.3-3.5); Glucose 126 mg/dL (74-106); HDL Cholesterol 53 mg/dL (40-60); LDL Cholesterol,Calculated 76 mg/dL (0-130); Osmolality,Calculated 285 (275-295); Potassium 3.4 mMol/L (3.4-5.1); Sodium 143 mMol/L (136-145); Thyroid Stimulating Hormone 4.17 uIU/mL (0.55-4.78); Total Protein 6.6 gm/dL (5.7-8.2); Triglycerides 90 mg/dL (30-150); eGFR > 60 See Note
--- NOTE | 2025-02-05 14:50 | ESPR_ITS ---
Documentation for date of: 02/05/25 Subjective Subjective Interval history: 84-year-old female with past medical history of TIA, hyperlipidemia, hypertension, and valley fever was admitted to the ICU on 02/04/2025 after coming to the ED with complaints of altered mental status that started around 1 PM today. Patient's and son were at bedside during the time of assessment and provided most of the history given that patient was aphasic. Patient's stated that in October around [place] time she had a similar episode where she was confused, but this episode did not last long and it was self resolved. He did not mention any hospital stay or visit during this time, but he did mention that supposedly it was a TIA. Patient stated that today's episode started when they were finishing packing up everything to head home back from [place] when she was on the car asking him how to turn on the [employer] blades as it was raining, but it was not raining and all. Patient's mentioned that he noticed that she was more confused therefore he drove until he had good cell phone composition floor layer and was able to call 911 to have patient brought into the ER. Prior to this patient's stated that she was in her normal mental state. As per patient's she does not take any medications other than atorvastatin 10 mg as well as some blood pressure medications. It is unknown if patient was on any dual antiplatelet therapy after her similar episode in October. During assessment patient was able to follow commands, but it was noted that she did have some expressive aphasia and was mildly confused and was only oriented to her first name. She denies any chest pain, abdominal pain, nausea, diarrhea, or dysuria. In the ER patient was agitated, confused, combative, and is still aphasic therefore she was given Ativan and haloperidol as well as restraints were placed. Head CT was done while the patient was in the ER and did not reveal any acute hemorrhage, mass effect, or midline shift therefore ER physician spoke with teleneurology specialist and was given tenecteplase. Patient was admitted to the ICU for post tenecteplase administration monitoring. 02/05: No acute overnight events, no active signs of bleeding, mentation has improved, awake alert and oriented, passed speech eval. No focal deficits. Still somwhat confused as to month and year. Head CT 24 hrs couldn't be done due to machine issues, MRI either, hoping for tomorrow. Safe and stable for downgrade to the floors. Exam Vital Signs Temp Pulse Resp BP Pulse Ox O2 Del Method O2 Flow Rate 97.9 F 93 18 121/90 H 93 L Room Air 2 02/05/25 04:00 02/05/25 14:01 02/05/25 11:00 02/05/25 14:01 02/05/25 14:01 02/04/25 16:57 02/04/25 15:30 Narrative Exam GENERAL: Awake, alert and oriented. No acute distress. HEENT: Normocephalic, atraumatic and nontender.? Pupils are equal and reactive to light and accommodation.? Oral mucosa moist. NECK: Supple without adenopathy. [place] midline. Nontender, carotid pulse 2+ bilaterally without bruits, no JVD.? CHEST: Heart rate and rythm normal, no murmurs, gallops auscultated. S1 & 2 normal insensity. Nontender on palpation, no deformity and no crepitus. LUNGS: Lung sounds are clear.? No wheezing, rales or ronchi.? No intercostal subcostal retraction. Room air ABDOMEN: Soft,symmetric , nontender, no guarding or rebound tenderness. No abnormal masses palpated.? No pulsatile masses or bruits.? Bowel sounds are normoactive in all 4 quadrants. EXTREMITIES: Nontender.? No pitting edema.? No cyanosis.? Patient is able to move all 4 extremities. SKIN: No rashes noted. NEURO:? Cranial nerves intact.? There is no focalization.? GCS is 15. NIHHS 2 Objective Labs 02/05/25 13:40 02/05/25 13:40 Labs: Laboratory Results - last 24 hr 02/04/25 02/04/25 02/04/25 13:30 13:58 15:03 WBC RBC Hgb Hct MCV MCH MCHC RDW Std Deviation Plt Count Neut % (Auto) Lymph % (Auto) Reynolds % (Auto) Eos % (Auto) Baso % (Auto) Neut # (Auto) Lymph # (Auto) Reynolds # (Auto) Eos # (Auto) Baso # (Auto) Immature Gran # (Auto) Absolute Nucleated RBC Immature Gran % Nucleated RBC % Puncture Site Left Radial ABG pH 7.47 H ABG pCO2 31 L ABG pO2 51 L* ABG HCO3 22 ABG O2 Saturation 88 L ABG Base Excess -1 Oxygen Liter Flow 2 FiO2 21 Sodium 144 Potassium 3.6 Chloride 111 H Carbon Dioxide 19.2 L Anion Gap 14 BUN 14 Creatinine 0.8 Estim Creat Clear Calc 55.5 L eGFR > 60 BUN/Creatinine Ratio [address] Glu mg/dL Hemoglobin A1c Calculated Osmolality 289 Calcium 9.3 Corrected Calcium 9.3 Magnesium 2.1 Total Bilirubin 0.5 AST 23 ALT 19 Alkaline Phosphatase 126 H Troponin I < 0.002 Total Protein 6.8 Albumin 4.7 Globulin 2.1 L Albumin/Globulin Ratio 2.2 Triglycerides Cholesterol LDL Cholesterol, Calc HDL Cholesterol Cholesterol/HDL Ratio TSH Ur Collection Type Catheter Urine Color Colorless A Urine Clarity Clear Urine pH 7.5 H Ur Specific [place] 1.010 Urine Protein Negative Urine Glucose (UA) Negative Urine Ketones Trace Urine Blood Negative Urine Nitrite Negative Urine Bilirubin Negative Urine Urobilinogen (Auto) Negative Ur Leukocyte Esterase Negative Urine RBC 1 Urine WBC 4 Ur Squamous Epith Cells 1 Urine Bacteria None Urine Opiates Screen Negative Urine Fentanyl Screen Negative Ur Barbiturates Screen Negative U Amphetamin/Meth Scrn Negative U Benzodiazepines Scrn Negative U Cocaine Metab Screen Negative U Marijuana (THC) Screen Positive A Ethyl Alcohol < 3.0 02/05/25 13:40 WBC 8.3 RBC 4.69 Hgb 13.2 Hct 40.1 MCV 86 MCH 28.1 MCHC 32.9 RDW Std Deviation 50.1 H Plt Count 313 Neut % (Auto) 70 Lymph % (Auto) 21 Reynolds % (Auto) 7 Eos % (Auto) 1 Baso % (Auto) 1 Neut # (Auto) 5.8 Lymph # (Auto) 1.7 Reynolds # (Auto) 0.6 Eos # (Auto) 0.1 Baso # (Auto) 0.1 Immature Gran # (Auto) 0.03 H Absolute Nucleated RBC 0.00 Immature Gran % 0 Nucleated RBC % 0 Puncture Site ABG pH ABG pCO2 ABG pO2 ABG HCO3 ABG O2 Saturation ABG Base Excess Oxygen Liter Flow FiO2 Sodium 143 Potassium 3.4 Chloride 108 H Carbon Dioxide 24.5 Anion Gap 11 BUN 9 Creatinine 0.7 Estim Creat Clear Calc 62.5 eGFR > 60 BUN/Creatinine Ratio 13 [address]ucose [address] Glu mg/dL 120 Hemoglobin A1c 5.8 Calculated Osmolality 285 Calcium 8.7 Corrected Calcium 8.7 Magnesium Total Bilirubin 0.6 AST 24 ALT 16 Alkaline Phosphatase 114 Troponin I Total Protein 6.6 Albumin 4.3 Globulin 2.3 Albumin/Globulin Ratio 1.9 Triglycerides 90 Cholesterol 147 LDL Cholesterol, Calc 76 HDL Cholesterol 53 Cholesterol/HDL Ratio 2.8 L TSH 4.17 Ur Collection Type Urine Color Urine Clarity Urine pH Ur Specific [place] Urine Protein Urine Glucose (UA) Urine Ketones Urine Blood Urine Nitrite Urine Bilirubin Urine Urobilinogen (Auto) Ur Leukocyte Esterase Urine RBC Urine WBC Ur Squamous Epith Cells Urine Bacteria Urine Opiates Screen Urine Fentanyl Screen Ur Barbiturates Screen U Amphetamin/Meth Scrn U Benzodiazepines Scrn U Cocaine Metab Screen U Marijuana (THC) Screen Ethyl Alcohol ABG Interpretation ABG results: 02/04/25 15:03 ABG pH 7.47 H ABG pCO2 31 L ABG pO2 51 L* ABG HCO3 22 ABG O2 Saturation 88 L ABG Base Excess -1 Quality Measures Quality Measures stroke Suspected type of Stroke: Acute Ischemic Last known well (date): 02/04/25 Last known well (time): 13:00 Tenecteplase given: within 60 min of arrival Rehab services: PT evaluation ordered VTE Prophylaxis: pharmaceutical Antithrombotic by day 2:: ordered Statin ordered: >75 y/o moderate or high intensity dose Anticoagulation ordered for A-fib or flutter (current or hx): ordered Advance care planning discussed with:: patient Assessment & Plan Assessment Current Active Medications: Generic Name Dose Route Start Last Admin Trade Name Freq PRN Reason Stop Dose Admin Atorvastatin Calcium 80 mg 02/04/25 21:00 02/04/25 22:37 Atorvastatin Calcium 20 Mg Tablet PO 03/06/25 20:59 Not Given HS ZACK Sodium Chloride 1,000 mls @ 100 mls/hr 02/04/25 14:15 02/05/25 13:51 Ns IV 03/06/25 14:14 Not Given Q10H ZACK Ondansetron HCl 4 mg 02/04/25 14:06 Ondansetron Inj 2 Mg/Ml Inj 2 Ml IV 03/06/25 14:05 Q4HR PRN NAUSEA OR VOMITING Plan 84-year-old female with past medical history of TIA, hyperlipidemia, hypertension, and valley fever was admitted to the ICU on 02/04/2025 for post tenecteplase administration monitoring and the likelihood of acute CVA. [employer]CH[employer]IAN: #Acute encephalopathy #Aphasia ?DDx : TIA versus stroke, pending MRI ?Initial NIHSS score 4, today 2 ?CTA head and neck negative ?CT head did not show any hemorrhage, mass effect or midline shift ?Teleneuro consulted and advised TNK, MRI, ?Patient was in window for IV thrombolytics therefore TNK was given in ED. ?All labs within normal limits, including lipid panel, A1c and TSH. utox positive for marihuana ? Repeat head CT after 24 hours: pending ? MRI ordered - Echo ordered - Will start aspirin and plavix as well. -Speech eval passed ?Aspiration precautions -Consult in-hospital neurology, appreciate recommendations -PT CVS: #Hx of hypertension ?Has mantained normotensive, we will continue to monitor #Hyperlipidemia ? Start atorvastatin 80 mg HS Respiratory: -Stable Renal: No active conditions GI: No active conditions Endo: No active conditions Hematology: #Leukocytosis ? WBC 12.2 on admission, likely reactive, normalized Hospital Maintenance: Diet: Regular DVT ppx: held due to TNK GI ppx: not indicated IV lines: PIV Fajardo: none Code status: Full code Dispo: ICU for monitoring after tenecteplase, downgrade to floors Patient's care discussed with attending physician, Tone Morales MD PGY3
--- NOTE | 2025-02-05 14:54 | ECHO_ITS ---
Transthoracic Echo Report Ht (in): 64 Wt (lb): 184 Exam Location: Portable Status: Inpatient Tread Builder: CALE Araujo^^^^ Indications: Procedure Performed: BP: 156 / 77 HR: MEASUREMENTS (Male / Female) Normal Values 2D ECHO LV Diastolic Diameter PLAX 3.4 cm 4.2 - 5.9 / 3.9 - 5.3 cm LV Systolic Diameter PLAX 2.4 cm IVS Diastolic Thickness 1.2 cm 0.6 - 1.0 / 0.6 - 0.9 cm LVPW Diastolic Thickness 0.9 cm 0.6 - 1.0 / 0.6 - 0.9 cm LV Relative Wall Thickness 0.6 LVOT Diameter 1.3 cm Aortic Root Diameter 2.9 cm LA Systolic Diameter LX 2.8 cm 3.0 - 4.0 / 2.7 - 3.8 cm LV Ejection Fraction MOD 4C 61.5 % LV Ejection Fraction 4C AL 62.5 % LA Volume Index 51.7 cm?/m? 16 - 28 cm?/m? Ascending Aorta Diameter 2.9 cm DOPPLER AV Peak Velocity 212.3 cm/s AV Peak Gradient 18.0 mmHg AV Mean Gradient 10.5 mmHg AV Velocity Time Integral 42.5 cm LVOT Peak Velocity 146.0 cm/s LVOT Peak Gradient 8.5 mmHg LVOT Velocity Time Integral 33.4 cm AV Area Cont Eq vti 1.0 cm? AV Area Cont Eq pk 0.9 cm? MV Peak Velocity 127.0 cm/s MV Peak Gradient 6.5 mmHg MV Mean Velocity 86.9 cm/s MV Mean Gradient 3.0 mmHg MV Area PHT 3.9 cm? MR Peak Velocity 579.0 cm/s MR Peak Gradient 134.1 mmHg Mitral E Point Velocity 94.8 cm/s Mitral A Point Velocity 145.0 cm/s Mitral E to A Ratio 0.7 LV E' Lateral Velocity 7.9 cm/s Mitral E to LV E' Lateral Ratio 12.0 LV E' Septal Velocity 13.1 cm/s Mitral E to LV E' Septal Ratio 7.2 TR Peak Velocity 272.5 cm/s TR Peak Gradient 29.7 mmHg PV Peak Velocity 102.0 cm/s PV Peak Gradient 4.2 mmHg RVOT Peak Velocity 63.5 cm/s FINDINGS Left Ventricle Normal left ventricular size, wall thickness, systolic function with no obvious regional wall motion abnormalities. There is grade I diastolic dysfunction of the left ventricle (impaired relaxation pattern). The left ventricular ejection fraction is normal, estimated at 55-60%. Right Ventricle The right ventricle is normal in size and systolic function. The estimated right ventricular systolic pressure, 36 mmHg. Left Atrium Moderately increased left atrial volume 51.7 mL/m?. Right Atrium The right atrium is normal by two-dimensional imaging, color flow and Doppler imaging with no structural abnormalities, no thrombus formation present. Atrial Septum The interatrial septum is normal to color flow Doppler and agitated saline imaging. Aorta The aorta is normal by two-dimensional, color flow and Doppler interrogation. Mitral Valve Moderate mitral regurgitation. Mild mitral annular calcification. Aortic Valve Mild aortic valve stenosis, mean gradient 10.5 mmHg, LINDA 1 cm?. Tricuspid Valve There is mild tricuspid valve regurgitation. Pulmonic Valve The pulmonic valve is not well visualized. There is no significant pulmonic valve regurgitation. Vessels The pulmonary artery appears normal. The inferior vena cava pulmonary and hepatic veins appear normal. Pericardium The pericardium is normal by two-dimensional imaging. There is no significant pericardial effusion. CONCLUSIONS Indication: Stroke Bubble study suboptimal and could not see clearly. Consider RICHY if high risk of clinical suspicion. Normal LV size and function with an estimate ejection fraction of 55 to 60%. Stage I diastolic dysfunction. Mild LVH. Normal RV size and function. Mildly elevated estimated RVSP at 36 mmHg. Moderate MR with mild to moderate MAC. Mild aortic valve stenosis with a mean PG of 12 mmHg but the valve area is around 1 to 1.2 cm?. Moderate to severe left atrial dilatation. Moderate MR & MAC Luis Manuel Campbell (Electronically Signed) Final Date: 05 February 2025 18:51
--- NOTE | 2025-02-05 14:54 | PD.RESPRO ---
Documentation for date of: 02/05/25 Subjective Subjective Interval history: Patient seen and examined at bedside. She is an 84-year-old female with a past medical history of hypertension, hyperlipidemia, valley fever and TIA who presented to the ED on 02/04/2025 with altered mental status that started about 2 hours prior to presentation. Stroke alert was called in as the patient was still in the window, she received TNK was admitted to the ICU for post TNKase monitoring. At bedside today, patient's mentation is back at baseline, is at bedside and says she was more agitated, confused and combative yesterday, no longer aphasic. Head CT that was initially done was negative. Pending MRI and repeat head CT post TNKase to check for hemorrhagic conversion. Otherwise, patient is doing okay and is on atorvastatin 80 mg. Exam Vital Signs Temp Pulse Resp BP Pulse Ox O2 Del Method O2 Flow Rate 97.9 F 93 18 121/90 H 93 L Room Air 2 02/05/25 04:00 02/05/25 14:01 02/05/25 11:00 02/05/25 14:01 02/05/25 14:01 02/04/25 16:57 02/04/25 15:30 Narrative Exam GENERAL: AAOX3 NEURO: Strength preserved in bilateral upper and lower extremities, 5/5, no intention tremors, normal [id number], no nystagmus. Pupils reactive to light bilaterally, CN II to XII grossly intact. Intact sensation. HEENT: Moist mucosa. Eyes open, symmetrical, & clear CARDIO: No chest pain on palpation. Heart RRR, no obvious murmurs PULM: No noted coughing/dyspnea. Lungs CTA B/L GI: Abdomen soft, nondistended, no pain on palpation. BSx4 URO/CRUST SORTER:: No further abnormalities noted. SKIN/MSK/EXT: No wounds/rashes/edema/amputations, no pain on palpation. Pedal pulses present B/L Objective Labs 02/06/25 05:13 02/05/25 13:40 Labs: Laboratory Results - last 24 hr 02/04/25 02/04/25 02/04/25 13:30 13:58 15:03 WBC RBC Hgb Hct MCV MCH MCHC RDW Std Deviation Plt Count Neut % (Auto) Lymph % (Auto) Barry % (Auto) Eos % (Auto) Baso % (Auto) Neut # (Auto) Lymph # (Auto) Barry # (Auto) Eos # (Auto) Baso # (Auto) Immature Gran # (Auto) Absolute Nucleated RBC Immature Gran % Nucleated RBC % Puncture Site Left Radial ABG pH 7.47 H ABG pCO2 31 L ABG pO2 51 L* ABG HCO3 22 ABG O2 Saturation 88 L ABG Base Excess -1 Oxygen Liter Flow 2 FiO2 21 Sodium 144 Potassium 3.6 Chloride 111 H Carbon Dioxide 19.2 L Anion Gap 14 BUN 14 Creatinine 0.8 Estim Creat Clear Calc 55.5 L eGFR > 60 BUN/Creatinine Ratio 18 [address]ucose [address] Glu mg/dL Hemoglobin A1c Calculated Osmolality 289 Calcium 9.3 Corrected Calcium 9.3 Magnesium 2.1 Total Bilirubin 0.5 AST 23 ALT 19 Alkaline Phosphatase 126 H Troponin I < 0.002 Total Protein 6.8 Albumin 4.7 Globulin 2.1 L Albumin/Globulin Ratio 2.2 Triglycerides Cholesterol LDL Cholesterol, Calc HDL Cholesterol Cholesterol/HDL Ratio TSH Ur Collection Type Catheter Urine Color Colorless A Urine Clarity Clear Urine pH 7.5 H Ur Specific [place] 1.010 Urine Protein Negative Urine Glucose (UA) Negative Urine Ketones Trace Urine Blood Negative Urine Nitrite Negative Urine Bilirubin Negative Urine Urobilinogen (Auto) Negative Ur Leukocyte Esterase Negative Urine RBC 1 Urine WBC 4 Ur Squamous Epith Cells 1 Urine Bacteria None Urine Opiates Screen Negative Urine Fentanyl Screen Negative Ur Barbiturates Screen Negative U Amphetamin/Meth Scrn Negative U Benzodiazepines Scrn Negative U Cocaine Metab Screen Negative U Marijuana (THC) Screen Positive A Ethyl Alcohol < 3.0 02/05/25 13:40 WBC 8.3 RBC 4.69 Hgb 13.2 Hct 40.1 MCV 86 MCH 28.1 MCHC 32.9 RDW Std Deviation 50.1 H Plt Count 313 Neut % (Auto) 70 Lymph % (Auto) 21 Barry % (Auto) 7 Eos % (Auto) 1 Baso % (Auto) 1 Neut # (Auto) 5.8 Lymph # (Auto) 1.7 Barry # (Auto) 0.6 Eos # (Auto) 0.1 Baso # (Auto) 0.1 Immature Gran # (Auto) 0.03 H Absolute Nucleated RBC 0.00 Immature Gran % 0 Nucleated RBC % 0 Puncture Site ABG pH ABG pCO2 ABG pO2 ABG HCO3 ABG O2 Saturation ABG Base Excess Oxygen Liter Flow FiO2 Sodium 143 Potassium 3.4 Chloride 108 H Carbon Dioxide 24.5 Anion Gap 11 BUN 9 Creatinine 0.7 Estim Creat Clear Calc 62.5 eGFR > 60 BUN/Creatinine Ratio 13 [address]ucose [address] Glu mg/dL 120 Hemoglobin A1c 5.8 Calculated Osmolality 285 Calcium 8.7 Corrected Calcium 8.7 Magnesium Total Bilirubin 0.6 AST 24 ALT 16 Alkaline Phosphatase 114 Troponin I Total Protein 6.6 Albumin 4.3 Globulin 2.3 Albumin/Globulin Ratio 1.9 Triglycerides 90 Cholesterol 147 LDL Cholesterol, Calc 76 HDL Cholesterol 53 Cholesterol/HDL Ratio 2.8 L TSH 4.17 Ur Collection Type Urine Color Urine Clarity Urine pH Ur Specific [place] Urine Protein Urine Glucose (UA) Urine Ketones Urine Blood Urine Nitrite Urine Bilirubin Urine Urobilinogen (Auto) Ur Leukocyte Esterase Urine RBC Urine WBC Ur Squamous Epith Cells Urine Bacteria Urine Opiates Screen Urine Fentanyl Screen Ur Barbiturates Screen U Amphetamin/Meth Scrn U Benzodiazepines Scrn U Cocaine Metab Screen U Marijuana (THC) Screen Ethyl Alcohol ABG Interpretation ABG results: 02/04/25 15:03 ABG pH 7.47 H ABG pCO2 31 L ABG pO2 51 L* ABG HCO3 22 ABG O2 Saturation 88 L ABG Base Excess -1 Quality Measures Quality Measures stroke Suspected type of Stroke: Acute Ischemic Last known well (date): 02/04/25 Last known well (time): 13:00 Tenecteplase given: within 60 min of arrival Rehab services: PT evaluation ordered and Speech Language Pathology eval ordered VTE Prophylaxis: mechanical Antithrombotic by day 2:: ordered Statin ordered: >75 y/o moderate or high intensity dose Anticoagulation ordered for A-fib or flutter (current or hx): not indicated Advance care planning discussed with:: patient Assessment & Plan Assessment Current Active Medications: Generic Name Dose Route Start Last Admin Trade Name Freq PRN Reason Stop Dose Admin Atorvastatin Calcium 80 mg 02/04/25 21:00 02/04/25 22:37 Atorvastatin Calcium 20 Mg Tablet PO 03/06/25 20:59 Not Given HS ZACK Sodium Chloride 1,000 mls @ 100 mls/hr 02/04/25 14:15 02/05/25 13:51 Ns IV 03/06/25 14:14 Not Given Q10H ZACK Ondansetron HCl 4 mg 02/04/25 14:06 Ondansetron Inj 2 Mg/Ml Inj 2 Ml IV 03/06/25 14:05 Q4HR PRN NAUSEA OR VOMITING Plan Summary: The patient is an 84-year-old female with a past medical history of hypertension, hyperlipidemia, valley fever and TIA who presented to the ED on 02/04/2025 with altered mental status that started about 2 hours prior to presentation. Stroke alert was called in as the patient was still in the window, she received TNK was admitted to the ICU for post TNKase monitoring. #Acute encephalopathy #Acute CVA rule out Patient presented with altered mental status as well as aphasia and was agitated and combative. Stroke alert was called in as the patient was still in the window, she received TNK was admitted to the ICU for post TNKase monitoring. At bedside today, patient's mentation is back at baseline, is at bedside and says she was more agitated, confused and combative yesterday, no longer aphasic. Head CT that was initially done was negative. Pending MRI and repeat head CT post TNKase to check for hemorrhagic conversion. Otherwise, patient is doing okay and is on atorvastatin 80 mg. Plan: -Repeat head CT -MRI stroke protocol -Pending echocardiogram -Physical and speech therapy #History of hypertension #History of hyperlipidemia #Acute hypoxic respiratory failure -Management per primary team Attending Provider Attestation/Addendum I personally seen and examined the patient at the bedside in ICU and agreed with resident's findings, assessment and plan. continue with HTN control as per protocol s/p TNK. FU with brain MRI/CT head.
--- NOTE | 2025-02-05 18:01 | PC.NURSE ---
CT called at 1330, stated not available and will call back Ct called at [address] is down and will not be available until 02/06/25 afternoon
--- NOTE | 2025-02-05 18:27 | PC.NURSE ---
MRI stated they will not be able to scan pt today as there are pts ahead. Pt get MRI 02/06/25 aware
[2025-02-05] MEDS: MIDAZOLAM INJ 1 MG/ML VIAL 2 ML 2 MG IV (20:31)
[2025-02-05] MEDS: ATORVASTATIN CALCIUM 20 MG TABLET 80 MG PO (20:33)
[2025-02-05] MEDS: HALOPERIDOL LACT INJ 5 MG/ML VIAL 2 MG IM (21:00)
--- NOTE | 2025-02-05 21:30 | PC.NURSE ---
notified that MRI is ready for pt. Versed 2mg IV push and Haldol 2mg IM ordered. Versed given prior to leaving ICU. on arrival to MRI, pt still very nervous and anxious. IM Haldol given. During MRI, pt still very agitated, pt brought back to room and was notified.
[2025-02-06] VITALS: PULSE 93
[2025-02-06 04:00] VITALS: BP 136/70; PULSE 89; PULSE 93; RESP 19; TEMP 36.2; O2SAT 97
[2025-02-06 05:40] LABS: Basophils # (Auto) 0.1 Thou/mm3 (0.0-0.2); Basophils % (Auto) 1 % (0-2.5); Eosinophils # (Auto) 0.2 Thou/mm3 (0.0-0.5); Eosinophils % (Auto) 2 % (0-10); Hematocrit 38.9 % (36.0-46.0); Hemoglobin 12.8 g/dL (12.0-16.0); Immature Granulocytes % (Auto) 1 % (0-0); Immature Granulocytes Auto 0.05 Thou/mm3 (0.00-0.00); Lymphocytes # (Auto) 1.7 Thou/mm3 (1.0-4.8); Lymphocytes % (Auto) 16 % (10-50); Mean Corpuscular HGB Conc 32.9 g/dl (31.0-37.0); Mean Corpuscular Hemoglobin 28.6 pg (25.0-35.0); Mean Corpuscular Volume 87 fL (80-100); Monocytes # (Auto) 0.9 Thou/mm3 (0.0-0.8); Monocytes % (Auto) 9 % (0-12); Neutrophils % (Auto) 73 % (37-80); Nucleated Red Blood Cell % 0 /100 WBC (0); Platelet Count 309 Thou/mm3 (140-440); RDW Standard Deviation 49.8 fL (36.4-46.3); Red Blood Count 4.47 Miln/mm3 (4.00-5.20)
[2025-02-06 05:52] VITALS: BMI 31.3
[2025-02-06 08:00] VITALS: BP 148/83; PULSE 91; RESP 19; TEMP 36.2; O2SAT 93
[2025-02-06 08:14] LABS: Alanine Aminotransferase 16 U/L (10-49); Albumin, Serum 4.2 gm/dL (3.4-4.8); Albumin/Globulin Ratio 1.9 (1.2-2.2); Alkaline Phosphatase 110 U/L (46-116); Anion Gap 7 (7-16); Aspartate Amino Transferase 24 U/L (0-34); BUN/Creatinine Ratio 16 Ratio (12-20); Bilirubin,Total 0.8 mg/dL (0.3-1.2); Blood Urea Nitrogen 13 mg/dL (9-23); Calcium 9.1 mg/dL (8.3-10.6); Calcium (Corrected) 9.1 mg/dL (8.5-10.1); Carbon Dioxide 26.3 mMol/L (20.0-31.0); Chloride 108 mMol/L (98-107); Creatinine (Component) 0.8 mg/dL (0.6-1.3); Estimated Creatinine Clearance 54.6 mL/min (>60); Globulin 2.2 gm/dL (2.3-3.5); Glucose 102 mg/dL (74-106); Osmolality,Calculated 281 (275-295); Potassium 3.6 mMol/L (3.4-5.1); Sodium 141 mMol/L (136-145); Total Protein 6.4 gm/dL (5.7-8.2); eGFR > 60 See Note
[2025-02-06] MEDS: ASPIRIN EC 81 MG TABEC PO (08:40)
[2025-02-06] MEDS: CLOPIDOGREL BISULFATE 75 MG TABLET PO (08:41)
[2025-02-06 12:00] VITALS: BP 143/83; PULSE 91; PULSE 96; RESP 19; TEMP 36.2; O2SAT 93
[2025-02-06] MEDS: ACETAMINOPHEN 325 MG TABLET 650 MG PO (12:41)
[2025-02-06 13:40] VITALS: PULSE 128; RESP 18; RESP 94
--- NOTE | 2025-02-06 14:31 | XR_ITS ---
Examination: CT brain head without contrast. 2-D sagittal coronal reconstructions Date and time of exam:February 06, 2025 1658 hours Comparison February 04, 2025 INDICATIONS: Stroke alert February 04, 2025, onset focal neurologic deficit, post TPA CTDI: vol (mGy):48.5 DLP: (mGycm):934 Technique: Multiple CT axial sections of the brain have been obtained, 5 mm slice thickness. Contrast has not been administered. 2-D sagittal, coronal reconstructions have been obtained Low dose protocols were performed. One or more of the following dose reduction techniques were used; automated exposure control, adjustment of the mA and/or KV according to patient size, use of iterative reconstruction technique. Findings: No significant ventricular enlargement. Intra-axial or extra-axial hemorrhage density is not seen. No mass effect or midline shift Basal cisterns are not remarkable. Fourth ventricle is midline. Cranial vault intact. Impression: No interval acute hemorrhage, mass effect or midline shift
--- NOTE | 2025-02-06 15:00 | PC.SS ---
Rounding Note: CT scan is pending. If scan not completed by 05:00 PM, patient plans on departing AMA.
--- NOTE | 2025-02-06 15:43 | PC.SS ---
[employer] submitted transport request on [facility] for patient to obtain CT [place] [facility] [place] nurse to contact [facility] to coordinate transport.
--- NOTE | 2025-02-06 15:53 | ESDS_ITS ---
Planned Discharge Date 02/06/25 DS: Providers Provider Date of admission: 02/04/25 14:51 Primary care physician: Matilda Cummins Admitting Provider: Ramakrishna Campo MD Attending Provider on Admission: Juan Pitt MD Consults: 02/04/25 14:07 Consult to Neurology / Tele-Neurology Routine Comment: Consulting Provider: [facility] 02/04/25 14:56 Consult to Neurology / Tele-Neurology Routine Comment: stroke Consulting Provider: Greyson Callahan Referral Physical Therapy Routine Comment: Physician Instructions: Referral Speech Therapy Routine Comment: 02/05/25 08:30 Referral - OFFICE SPECIALIST Undergraduate Internship Routine Comment: peewee William Attending Provider on DC: Juan Ferrer MD Discharging Provider: Juan Ferrer MD DS: Diagnosis Problem List Completed Was Problem List Reviewed/Reconciled?: Yes Hospital Course Hospital Course Hospital course: Malathi Cedeño is an 84-year-old female with a past medical history of TIA, hyperlipidemia, hypertension, 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 Patient and were driving back from [place] when patient started to become confused, asking her to turn [facility] the [facility] when it was not raining. 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 Stroke alert was called and telemetry neuro was consulted, and per their evaluation patient had significant expressive versus receptive aphasia. Patient was within window and given tenecteplase after CT resulted negative. Then admitted to ICU for further management. Patient observed for 24 hours in ICU and downgraded to floors. Noted to be agitated, confused, and combative on day of admission but mentation returned back to baseline the following day. Started on aspirin and clopidogrel, neurology in agreement. Echo bubble study was suboptimal but EF 55 to 60%, stage I diastolic dysfunction. Attempted to obtain MRI but patient was too anxious despite being given Ativan and Haldol and was not willing to try again with different anxiolytic. Technical difficulties with in-house CT machine that has been out of commission and attempted to obtain CT at outpatient center to assess for intracranial bleed in setting of recent TNK. Patient and state that they have a to attend to and expressed wishes to leave prior to obtaining CT. However, able to work out situation such that patient was able to undergo repeat CT that did not show any interval hemorrhage, mass effect, or midline shift. Given that patient lives in [place], recommend to follow-up with PCP within 1 week and obtain MRI as outpatient and to obtain referral to follow-up with local neurologist. Additionally, she is to continue aspirin and plavix for 21 days. Resume losartan 100 mg upon discharge and hold amlodipine unless blood pressure > 140/90. Otherwise, strict return precautions were given to patient and if symptoms were to worsen/recur. Diagnoses during admission: #Acute encephalopathy #Acute CVA rule out #History of hypertension #History of hyperlipidemia #Acute hypoxic respiratory failure Discharge instructions: - Resume losartan 100 mg daily upon discharge - Hold taking amlodipine 30 mg daily; however, if blood pressure increases over 140/90 then can resume taking - Start taking clopidogrel 75 mg daily for 21 days - Start taking aspirin 81 mg daily for 21 days - Your atorvastatin dosage has been increased to 80 mg daily - Follow-up with your PCP within 1 week of discharge - Recommend obtaining MRI as outpatient as soon as possible - Recommend to obtain referral for neurology as outpatient - Return to nearest ED if symptoms worsen/recur ----- Plan discussed with attending physician Dr. Yoandy Ferrer MD PGY-1 Internal Medicine Time Spent with Patient Time attestation: Total time spent providing and/or coordinating discharge services: Home Health Home Health Referral Orders: 02/06/25 09:22 Home Health Referral Routine Reason For Exam: PRAVEENA Al Home-Bound The patient must either because of illness or injury, need the aid of supportive devices such as crutches, canes, wheelchairs, and walkers; the use of special transportation; or the assistance of another person in order to leave their place of residence; OR have a condition such that leaving his or her home is medically contraindicated. In addition, the patient also meets the following criteria: patient is normally unable to leave the home and leaving home requires considerable taxing effort. Addendum to Home Health Certification Practitioner's Certification: I certify that the patient has been under my care in the hospital and the care of attending physician (see below). We had a [id number] encounter on (see date below). My clinical findings indicate that the patient is home bound per the above criteria and the Home Health Services noted in these orders are medically necessary. The primary reason for the [id number] encounter is related to the fact that the patient requires home health services. 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 Wound Care: No IV Therapy: No RN Safety Evaluation: Yes RN to evaluate and create a plan of care that will produce positive outcomes. Palliative Treatment: No Palliative treatment and evaluate the need for hospice. Home Health Aide - Personal Care: No Home Health Aide to assist with any ADL's. Exam Vital Signs Temp Pulse Resp BP Pulse Ox O2 Del Method O2 Flow Rate 97.1 F 128 H 18 143/83 H 93 L Room Air 2 02/06/25 12:00 02/06/25 13:40 02/06/25 13:40 02/06/25 12:00 02/06/25 12:00 02/06/25 12:00 02/06/25 04:00 Narrative Exam General: AOx3, no acute distress, able to speak full sentences HEENT: NC/AT, mucous membranes moist, bilateral sclera anicteric Cardiovascular: regular rate and rhythm, S1/S2 present, no murmurs appreciated Pulmonary: clear to auscultation bilaterally, no rales/rhonchi/wheezes Abdominal: soft, non-tender, non-distended, no rebound/guarding, normal bowel sounds present Musculoskeletal: normal ROM, no peripheral edema Skin: warm and dry, intact, no rashes Neuro: CN II-XII intact, no focal deficits Discharge Plan Plan Patient Disposition: HOME (Self Care) Disposition Comment: ICU, Dr. Campo Care Plan Goals: - Resuming losartan 100 mg daily - Hold taking amlodipine 30 mg daily; however, if blood pressure increases over 140/90 then can resume taking - Start taking clopidogrel 75 mg daily for 21 days - Start taking aspirin 81 mg daily for 21 days - Your atorvastatin dosage has been increased to 80 mg daily - Follow-up with your PCP within 1 week of discharge - Recommend obtaining MRI as outpatient as soon as possible - Recommend to obtain referral for neurology as outpatient - Return to nearest ED if symptoms worsen/recur Prescriptions/Referrals Prescriptions/Med Rec: New aspirin 81 mg capsule 81 mg PO QDAY 21 Days Qty: 21 0RF clopidogrel 75 mg tablet 75 mg PO QDAY Qty: 21 0RF atorvastatin 80 mg tablet 80 mg PO QDAY Qty: 30 0RF Referrals: Matilda Cummins [Primary Care Provider] - Patient/Caregiver Discharge Instructions Education Materials: Using Blood Thinners Anticoagulants, Discharge Instructions for Stroke, Stroke Self Care After Print Language: Iranian Stand Alone Forms: Mini Award Info., Patient Portal Info Letter Discharge Order Discharge Orders: Discharge (Routine); Ordered 02/06/25 Ordered By: Whitley Gallegos Quality Discharge Quality Measures VTE prophylaxis Attestestation MD Attestation Face to face evaluation was performed by me. I have personally seen and examined the patient. I discussed the assessment and plan with the entire medicine team. I reviewed available medical records, imaging studies, laboratory results. I agree with the above subjective data, objective findings, assessment and plan except as corrected by me or noted below Acute encephalopathy, likely metabolic Stroke like symptoms with possibility of acute stroke. MRI cannot be completed as patient is anxious, attempt was done patient refuses to have another attempt even if anxiolytics are given. CT scan was not able to be completed post tPA 24 hours finally it was done during the day patient was to go home neurology was contacted and they agreeable with discharge and continue aspirin clopidogrel for dual antiplatelet coverage. Patient to follow-up with neurology and PCP after discharge. More than > 30 minutes spent on the encounter
[2025-02-06 16:00] VITALS: BP 147/78; PULSE 89; PULSE 92; RESP 19; TEMP 36.1; O2SAT 94
--- NOTE | 2025-02-06 17:37 | PC.CM ---
1700 Simone and I assisted in setting up transport to the [facility]. Paperwork sent to [facility] via [employer].
--- NOTE | 2025-02-07 10:02 | PC.CC ---
Patient referred to [facility], start of care 01/08/25.
== END 2025-02-06 18:15 | disposition home or self-care (01) | DRG 70 ==
LOC: SERX 15:22 → SERHOLD 15:24 → S2SX 17:08 → S2NX 02-06 08:38 → S2SX 02-06 08:43
PROVIDERS: Student in an Organized Health Care Education/Training Program; Admitting Provider Internal Medicine Critical Care Medicine; Emergency Provider Family Medicine; Visit Provider Internal Medicine
DX: G93.40 Encephalopathy, unspecified (principal); J96.01 Acute respiratory failure with hypoxia; E87.4 Mixed disorder of acid-base balance; R47.01 Aphasia; I10 Essential (primary) hypertension; E78.5 Hyperlipidemia, unspecified; D72.829 Elevated white blood cell count, unspecified; Z79.899 Other long term (current) drug therapy; Z79.82 Long term (current) use of aspirin; Z79.02 Long term (current) use of antithrombotics/antiplatelets; Z86.73 Personal history of transient ischemic attack (TIA), and cerebral infarction without residual deficits; Z78.1 Physical restraint status
CPT/HCPCS: 36415; 36600; 70450; 70496; 70498; 80053; 80061; 80307; 80320; 81001; 82803; 83036; 83735; 83880; 84443; 84484; 85025; 85610; 85730; 87077; 87081; 87086; 87186; 92610; 93005; 93306; 96372; 96374; 97162; 99291; A4649; J1630; J2060; J2250; J3101; J7030; Q9967; A9270; G0480